=== PATIENT | female | born 1990 ===

== ENCOUNTER → 2021-01-29 11:00 | Outpatient (BNVA) | payer MEDICAID, SELFPAY | PROVIDERS: PCP Internal Medicine; Referring Provider Internal Medicine; Visit Provider Surgery | DX: L05.91 Pilonidal cyst without abscess (principal) | CPT/HCPCS: 99202 ==

== ENCOUNTER 2021-01-31 05:25 | Outpatient (REF) | payer MEDICAID, SELFPAY ==
--- NOTE | ~2021-01-31 | XR_ITS ---
EXAMINATION: XR SHOULDER, LEFT CLINICAL INFORMATION: Left shoulder pain. COMPARISON: None TECHNIQUE: Three views of the left shoulder. FINDINGS: There is no evidence of acute fracture or dislocation of the left shoulder. No destructive bony lesion identified. There is a 1.0 x 0.5 cm circumscribed bony density adjacent to the medial humeral neck which may be posttraumatic in nature. This could also represent calcification within an axillary pouch or possible calcification involving the insertion of teres minor or latissimus dorsi. Glenohumeral joint appears unremarkable. No significant abnormality of the acromioclavicular joint is seen. No calcification at site of insertion of the supraspinatus tendon is identified. No definite evidence of subcoracoid or subacromial calcific bursitis. XR/XR shoulder LT min 2V IMPRESSION: No evidence of acute fracture or dislocation of the left shoulder. Circumscribed bony density about the medial aspect of the humeral neck which may represent sequela of previous injury.
== END 2021-01-31 05:26 | disposition home or self-care (01) ==
LOC: HO.HOSX 05:25
PROVIDERS: Visit Provider Physician Assistant
DX: M25.512 Pain in left shoulder (principal); S13.4XXA Sprain of ligaments of cervical spine, initial encounter
CPT/HCPCS: 73030; 99202

== ENCOUNTER 2021-02-08 13:02 | Outpatient (REF) | payer OTHER, SELFPAY ==
--- NOTE | ~2021-02-08 | CT_ITS ---
EXAMINATION: CT HEAD WITHOUT CONTRAST CLINICAL INFORMATION: Neck pain COMPARISON: None TECHNIQUE: Contiguous axial imaging was performed from the skull base to vertex without intravenous administration of contrast. This CT examination was performed using dose optimization techniques as appropriate, variously including the following: *Automated exposure control *Adjustment of mA and/or kV according to patient size (this includes techniques or standardized protocols for targeted exams where dose is matched to indication/reason for exam; i.e. extremities or head) *Use of iterative reconstruction technique DLP: 720 mGy-cm FINDINGS: There is no evidence of acute intracranial hemorrhage or territorial infarction. No abnormal mass effect or midline shift is seen. Tenorio to white matter differentiation is well preserved. No extra-axial fluid collections are identified. The ventricles are normal in size. There is no abnormal attenuation within the brain parenchyma. The osseous structures and soft tissues are normal. The mastoid air cells and visualized portions of the paranasal sinuses are well aerated. CT/CT head/brain wo con IMPRESSION: No acute intracranial process seen
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
== END 2021-02-08 13:03 | disposition home or self-care (01) ==
LOC: HO.CT 13:02
PROVIDERS: PCP Internal Medicine; Visit Provider Internal Medicine
DX: G44.329 Chronic post-traumatic headache, not intractable (principal); M54.2 Cervicalgia
CPT/HCPCS: 70450; 72141

== ENCOUNTER → 2021-04-17 12:51 | Outpatient (BNVA) | payer OTHER, MEDICAID, SELFPAY | PROVIDERS: PCP Internal Medicine; Visit Provider Physician Assistant ==

== ENCOUNTER 2021-05-21 19:33 | Outpatient (REF) | payer OTHER, MEDICAID, SELFPAY ==
--- NOTE | ~2021-05-21 | MR_ITS ---
EXAMINATION: MR SHOULDER WITHOUT CONTRAST, LEFT CLINICAL INFORMATION: Unspecified injuries of the muscle and tendons. Shoulder pain. COMPARISON: 01/31/2021 TECHNIQUE: MR images of the shoulder were obtained on a 1.5 Angélica high-field strength scanner without intravenous contrast material. FINDINGS: ROTATOR CUFF: Intact. No muscle atrophy or fatty infiltration. BICEPS: Normal. CORACOACROMIAL ARCH: The undersurface of the acromion is flat with no subacromial spur. Minimal acromioclavicular osteoarthritis. LABRUM/CAPSULE: There is an ill-defined tear of the anteroinferior glenoid labrum propagating from the anterior 3 o'clock position through the anteroinferior 5 o'clock position, giving rise to a 3.3 x 0.9 x 2 cm paralabral cyst. This cyst propagates medially along the anterior cortex of the glenoid. The joint capsule is intact. GLENOHUMERAL JOINT/MARROW: Within the axillary pouch, there is a 0.8 x 0.7 x 0.2 cm low signal intensity loose body. The origin of this is uncertain, possibly from a small chondral defect at the humeral head anterosuperiorly. No appreciable glenoid chondral defects are identified. Glenohumeral joint is relatively well preserved. No effusion. MR/MR shoulder LT wo con IMPRESSION: 1. Ill-defined, nondisplaced tear of the anteroinferior glenoid labrum giving rise to a 3.3 cm paralabral cyst. 2. A 0.8 cm loose body in the axillary pouch. The donor site is uncertain, possibly from a subtle chondral defect at the humeral head anterosuperiorly. The glenohumeral joint is otherwise well preserved. 3. Minimal acromioclavicular osteoarthritis.
== END 2021-05-21 19:34 | disposition home or self-care (01) ==
LOC: HO.MRI 19:33
PROVIDERS: Visit Provider Physician Assistant
DX: S46.002A Unspecified injury of muscle(s) and tendon(s) of the rotator cuff of left shoulder, initial encounter (principal)
CPT/HCPCS: 73221

== ENCOUNTER → 2021-06-17 14:24 | Outpatient (BNVA) | payer OTHER, MEDICAID, SELFPAY | PROVIDERS: PCP Internal Medicine; Visit Provider Physician Assistant | DX: M77.8 Other enthesopathies, not elsewhere classified (principal) | CPT/HCPCS: 99212 ==

== ENCOUNTER → 2021-08-16 09:35 | Outpatient (BNVA) | payer OTHER, MEDICAID, SELFPAY | PROVIDERS: PCP Internal Medicine; Visit Provider Physician Assistant ==

== ENCOUNTER → 2021-09-27 11:31 | Outpatient (BNVA) | payer OTHER, MEDICAID, SELFPAY | PROVIDERS: PCP Internal Medicine; Visit Provider Physician Assistant | DX: Z01.818 Encounter for other preprocedural examination (principal); S43.432A Superior glenoid labrum lesion of left shoulder, initial encounter; X58.XXXA Exposure to other specified factors, initial encounter; Y93.9 Activity, unspecified; Y92.9 Unspecified place or not applicable; Y99.9 Unspecified external cause status | CPT/HCPCS: 99212 ==

== ENCOUNTER 2021-10-02 05:59 | Day surgery (SDC) | payer OTHER, MEDICAID, SELFPAY ==
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
[2021-10-02] VITALS (11 sets, daily range): BP systolic 137–158; BP diastolic 85–96; PULSE 67–98; RESP 14–18; TEMP 36.3–36.9; O2SAT 98–100
[2021-10-02 06:37] LABS: UPreg QC Valid YES; Urine Pregnancy NEGATIVE (NEGATIVE)
[2021-10-02] MEDS: Lactated Ringers 1,000 ML 100 ML IVCONT (06:43)
--- NOTE | 2021-10-02 07:29 | MHC.SHP ---
Pre-Procedural Eval Section A Date of Service: 10/02/21 The patient is an INPATIENT: No Changes since office visit: Yes Patient answered all questions; No Cold of Flu in the past 2 weeks, No New Medical Problems and No Changes in Medication The History & Physical has been completed within 30 days and I have reviewed it.: Yes Section B Chief Complaint: enthesopathies Allergies: Allergies Allergy/AdvReac Type Severity Reaction Status Date / Time No Known Allergies Allergy Verified 09/27/21 11:39 Plan I have reviewed the history and physical and performed a pertinent physical examination on my patient. No changes have occurred unless specified.
--- NOTE | 2021-10-02 09:38 | P.BOP_ITS ---
Brief Operative Note Date of Service: 10/02/21 Pre-op diagnosis: left shoulder instability Post-op diagnosis: other (Soft tissue bankhardt and intra-articular loose body) Procedure: labral repair with inferior capsular plication and removal of loose body left shoulder Implants: Mercado and Nephew micro-raptor x 2 Surgeon: Abdi Goodwin MD Anesthesia: GETA and regional Was an Conservation Engineer used for this Procedure?: Yes Conservation Engineer: Karis Lozoya Estimated blood loss (mL): 10 IV fluids (mL): 1,000 Pathology: none sent Condition: stable Disposition: PACU
[2021-10-02] MEDS: fentaNYL citrate/PF 100 MCG/2 ML VIAL 25 MCG IVPUSH ×2 (09:57→10:10)
[2021-10-02] MEDS: oxyCODONE HCl Immed Release 5 MG TABLET PO (10:10)
--- NOTE | 2021-10-04 12:38 | P.OP_ITS ---
Operative Note Operative Note Date of Service: 10/04/21 Narrative: Pre-op diagnosis: left shoulder instability Post-op diagnosis: other (Soft tissue bankhardt and intra-articular loose body) Procedure: labral repair with inferior capsular plication and removal of loose body left shoulder Implants: [employer] Nephew micro-raptor x 2 Surgeon: Abdi Goodwin MD Anesthesia: GETA and regional Was an Senior Applications Developer used for this Procedure?: Yes Senior Applications Developer: Karis Lozoya Estimated blood loss (mL): 10 IV fluids (mL): 1,000 Pathology: none sent Condition: stable Disposition: PACU Procedure in detail: Patient was brought to the operating room and placed the the beach chair position. All bony prominences were well padded and the limb was prepped and draped in standard sterile fashion. A time out was called to identify proper site, proper procedure and proper surgeon. IV antibiotics per weight were administered. I began by making a posterolateral stab incision with a 15 blade. A blunt trochar was placed into the glenohumeral joint and I insufflated the joint with saline and a 30 degree arthroscope was placed. I established an outside- in anterior portal just distal to the biceps tendon. I then began my inspection of the glenohumeral joint. The superior and posterior labrum were in tact. The cartilage surfaces were clean except for the anterior inferior aspect of the glenoid where there was a Bankart lesion. There was a loose body in the gutter that was likely from the Bankart lesion. There was a positive drive- through side. There was no undersurface rotator cuff tear and the glenohumeral joint was otherwise intact. I then debrided the soft tissue/small bony Bankart and a rasp was used to clear out the anterior labral debris and tissue at approximately 07:00 o'clock position. I then passed a 2 sutures underneath the torn labrum and capturing some of the inferior capsule as well. I then reapproximated the labral bumper each of these to the anterior glenoid rim using a a knotless micro-raptor suture. I was very satisfied with the repair and there was a reapproximation of the anterior labrum with tightening of the inferior capsule. I then removed the trochar and entered the subacromial space. A direct lateral portal was then established and I performed a bursectomy. The cuff was then examined. There was no rotator cuff and the subacromial space was otherwise normal. Final images were captured and I removed all instrumentation. Portals were closed with nylon. Patient was placed in an abduction sling, extubated and brought to the recovery room in stable condition. There were no known complications.
== END 2021-10-02 11:41 | disposition home or self-care (01) ==
PROVIDERS: Nurse Practitioner; PCP Internal Medicine; Visit Provider Orthopaedic Surgery
PROC: (CPT 29805; principal; 2021-10-02 07:30)
DX: S43.432A Superior glenoid labrum lesion of left shoulder, initial encounter (principal); M25.312 Other instability, left shoulder; M24.012 Loose body in left shoulder; M25.512 Pain in left shoulder; X58.XXXA Exposure to other specified factors, initial encounter; Y93.9 Activity, unspecified; Y92.9 Unspecified place or not applicable; Y99.8 Other external cause status; K21.9 Gastro-esophageal reflux disease without esophagitis; J45.990 Exercise induced bronchospasm; Z79.899 Other long term (current) drug therapy; Z87.891 Personal history of nicotine dependence
CPT/HCPCS: 29806; 29826; 81025; J0171; J0690; J1100; J2250; J2405; J2550; J3010

== ENCOUNTER 2021-10-07 09:21 | Outpatient (RCR) | payer OTHER, MEDICAID, SELFPAY | END 2021-12-13 10:45 | disposition home or self-care (01) | LOC: HO.PT 09:21 | PROVIDERS: PCP Internal Medicine; Visit Provider Physician Assistant | DX: S43.432D Superior glenoid labrum lesion of left shoulder, subsequent encounter (principal) ==

== ENCOUNTER → 2021-10-07 11:29 | Outpatient (BNVA) | payer OTHER, MEDICAID, SELFPAY | PROVIDERS: PCP Internal Medicine; Visit Provider Physician Assistant | DX: S43.432D Superior glenoid labrum lesion of left shoulder, subsequent encounter (principal); Z79.899 Other long term (current) drug therapy; X58.XXXD Exposure to other specified factors, subsequent encounter | CPT/HCPCS: 99212 ==

== ENCOUNTER → 2021-11-04 11:30 | Outpatient (BNVA) | payer OTHER, MEDICAID, SELFPAY | PROVIDERS: PCP Internal Medicine; Visit Provider Physician Assistant | DX: Z13.89 Encounter for screening for other disorder (principal) ==

== ENCOUNTER → 2022-06-06 13:30 | Outpatient (BNVA) | payer MEDICAID, SELFPAY | PROVIDERS: PCP Internal Medicine; Visit Provider Physician Assistant | DX: Z47.89 Encounter for other orthopedic aftercare (principal); S43.432D Superior glenoid labrum lesion of left shoulder, subsequent encounter | CPT/HCPCS: 99212 ==

== ENCOUNTER → 2022-07-28 14:13 | Outpatient (BNVA) | payer MEDICAID, SELFPAY | PROVIDERS: PCP Internal Medicine; Visit Provider Anesthesiology | DX: M47.812 Spondylosis without myelopathy or radiculopathy, cervical region (principal); M54.81 Occipital neuralgia; M50.30 Other cervical disc degeneration, unspecified cervical region | CPT/HCPCS: 99202 ==

== ENCOUNTER → 2022-09-30 09:11 | Outpatient (BNVA) | payer MEDICAID, SELFPAY | PROVIDERS: PCP Internal Medicine; Visit Provider Physician Assistant | DX: S43.439A Superior glenoid labrum lesion of unspecified shoulder, initial encounter (principal) | CPT/HCPCS: 99212 ==

== ENCOUNTER 2023-08-25 09:23 | Outpatient (REF) | payer MEDICAID, SELFPAY | END 2023-08-25 09:24 | disposition home or self-care (01) | LOC: HO.HOSX 09:23 | PROVIDERS: Visit Provider Physician Assistant | DX: Z13.89 Encounter for screening for other disorder (principal) ==

== ENCOUNTER 2023-09-22 14:30 | Outpatient (AMB) | payer MEDICAID, SELFPAY ==
--- NOTE | 2023-09-22 15:05 | A.OFFVIS_ITS ---
Intake Intake Visit Reasons: Newprob-Right shoulder pain Intake Note: Cynthia is a 33 year old left hand dominant female presents today for a evaluation of her right shoulder pain. Patient reports ongoing pain for a month and she feels that it is getting worse. She states that her ROM is limited with movement. Pain is more focused on the shoulder and it radiates up to her clavicle. She states using heat on the area gives her relief and resting also gives her relief. Allergies No Known Allergies Allergy (Verified 09/30/22 09:35) HPI Newprob-Right shoulder pain HPI Details 33-year-old left hand dominant female [place] presents in the office today for an evaluation of right shoulder pain. Patient reports ongoing pain for a month and she feel this is getting worse. She reports her ROM is limited with movements. She states the pain is focused in the shoulder that radiates up to the clavicle. She confirms the use of heat on the area and rest which gives her relief. She feels she has been over working the right shoulder. Patient denies a medical history of diabetes mellitus. Patient reports a left shoulder labral repair with inferior capsular plication and removal of loose body, which was performed on 10/04/[address] Goodwin. [facility] Medical History Asthma GERD (gastroesophageal reflux disease) Surgical History History of esophagogastroduodenoscopy (EGD) Family History Brother Sarcoma Paternal Grandmother Lung cancer Social History (Updated 09/22/23 @ 15:10 by Marimar Underwood) Are you a primary pet care associate to a significant other at home: No Do you presently have visiting nurse or other home services: No Alcohol intake: current Alcohol intake frequency: holidays/special occasions only Patient Tobacco Use Status: Former Tobacco user Quit Date: age 21 Tobacco use type: Cigarette Current occupational status: employed Current occupation: [employer]/ left handed Review of Systems Const All systems reviewed & are unremarkable except as noted in HPI and below Physical Exam Const General: cooperative, healthy appearing and no acute distress Resp Effort & Inspection: normal respiratory effort and able to speak in complete sentences Cardio Rate: regular rate Peripheral pulses: Peripheral pulses 2+ throughout GI Palpation (GI): Soft to palpation Skin Lesions: no lesions Rashes: no rashes Extrem Other: Right shoulder: Normal to inspection. No ecchymosis, erythema, or edema. Full shoulder ROM in all planes. Pain with cross-body reach. 5/5 strength with empty can. Negative drop arm. NVI. Assessment & Plan Assessment & Plan (1) Painful arc syndrome of right shoulder: Code(s): M75.101 - Unspecified rotator cuff tear or rupture of right shoulder, not specified as traumatic Plan Ms. Prieto is a 33-year-old left hand dominant female who presents in the office today for an evaluation of right shoulder pain. Patient reports ongoing pain for a month and she feel this is getting worse. She reports her ROM is limited with movements. She states the pain is focused in the shoulder that radiates up to the clavicle. She confirms the use of heat on the area and rest which gives her relief. She feels she has been over working the right shoulder. Patient denies a medical history of diabetes mellitus. Patient reports a left shoulder labral repair with inferior capsular plication and removal of loose body, which was performed on 10/04/[address] Goodwin. We discussed the role of cortisone injections, but she is not interested at this time. A referral for physical therapy was made and a copy was supplied to the patient while in the office today. She will call the office in 6 weeks to discuss her status. Should she not have relief we will move forward with an MRI to further evaluate the integrity of the right shoulder. Follow up will be in 6 weeks via telehealth, or sooner if needed. X-rays of the right shoulder which were obtained while in the office today and were reviewed by me, Karis Lozoya PA-C, revealed no acute fracture or dislocation. Orders: Orders PT Evaluation and Treatment Today M75.101 - Unspecified rotator cuff tear or rupture of right shoulder, not specified as traumatic XR shoulder RT min 2V Today M25.519 - Pain in unspecified shoulder Patient Instructions: Scribed by Chey Sarabia medical office professional instructor, for Karis Lozoya PA-C on 09/22/2023 at 2:36 pm, EST. Coding Level of Care Code Est Pt Level 3 (86292) Diagnoses Painful arc syndrome of right shoulder M75.101
== END 2023-09-22 15:37 | disposition home or self-care (01) ==
PROVIDERS: PCP Internal Medicine; Visit Provider Physician Assistant
DX: M75.101 Unspecified rotator cuff tear or rupture of right shoulder, not specified as traumatic (principal)
CPT/HCPCS: 99213

== ENCOUNTER 2023-09-22 15:08 | Outpatient (REF) | payer OTHER, SELFPAY ==
--- NOTE | ~2023-09-22 | XR_ITS ---
EXAMINATION: XR SHOULDER, RIGHT CLINICAL INFORMATION: Pain in unspecified shoulder. COMPARISON: None available. TECHNIQUE: Three views of the right shoulder. FINDINGS: Mild degenerative changes in the acromioclavicular joint with joint space narrowing and hypertrophic change. Glenohumeral alignment is preserved. XR/XR shoulder RT min 2V IMPRESSION: Mild degenerative changes in the acromioclavicular joint.
== END 2023-09-22 15:09 | disposition home or self-care (01) ==
LOC: HO.HOSX 15:08
PROVIDERS: Visit Provider Physician Assistant
DX: M75.101 Unspecified rotator cuff tear or rupture of right shoulder, not specified as traumatic (principal)
CPT/HCPCS: 73030; 99212

== ENCOUNTER 2023-12-17 09:12 | Outpatient (REF) | payer OTHER, SELFPAY | END 2023-12-17 09:13 | disposition home or self-care (01) | LOC: HO.HOSX 09:12 | PROVIDERS: Visit Provider Physician Assistant | DX: M75.102 Unspecified rotator cuff tear or rupture of left shoulder, not specified as traumatic (principal) | CPT/HCPCS: 99212 ==

== ENCOUNTER 2023-12-17 15:00 | Outpatient (AMB) | payer MEDICAID, SELFPAY ==
--- NOTE | 2023-12-17 15:06 | A.OFFVIS_ITS ---
Intake Visit Reasons: OV - left shoulder pain Intake Note: Cynthia is a 33 year old left hand dominant female presents today for a evaluation of her left shoulder pain. Allergies No Known Allergies Allergy (Verified 09/30/22 09:35) HPI HPI OV - left shoulder pain: Details: 33-year-old left hand dominant female who presents in the office today for a follow-up of left shoulder pain. I last saw the patient in the office on 09/30/2022 for the patient?s final postoperative appointment before being released to activities as tolerated. While in the office today the patient reports having left shoulder pain. She denies any injury or trauma to the left shoulder. However, her job does require a lot of repetitive motion. Due to the pain in the right shoulder, she feels she has been overcompensating with the left upper extremity causing the increase in pain. Patient has a surgical history of a left shoulder labral repair with inferior capsular plication and removal of loose body, which was performed on 10/02/[address] Goodwin. [facility] Medical History Asthma GERD (gastroesophageal reflux disease) Surgical History History of esophagogastroduodenoscopy (EGD) Family History Brother Sarcoma Paternal Grandmother Lung cancer Social History (Updated 09/22/23 @ 15:10 by Marimar Underwood) Are you a primary transition of care specialist to a significant other at home: No Do you presently have visiting nurse or other home services: No Alcohol intake: current Alcohol intake frequency: holidays/special occasions only Patient Tobacco Use Status: Former Tobacco user Tobacco use type: Cigarette Current occupational status: employed Current occupation: [employer]/ left handed Review of Systems Const All systems reviewed & are unremarkable except as noted in HPI and below Physical Exam Const General: cooperative, healthy appearing and no acute distress Resp Effort & Inspection: normal respiratory effort and able to speak in complete sentences Cardio Rate: regular rate Peripheral pulses: Peripheral pulses 2+ throughout GI Palpation (GI): Soft to palpation Skin Lesions: no lesions Rashes: no rashes Extrem Other: Left shoulder: Normal to inspection. No ecchymosis, erythema, or edema. Pain at the bicep tendon insertion. Full shoulder ROM in all planes. Negative cross-body reach. Negative empty can. Negative drop arm. NVI. Assessment & Plan Assessment & Plan (1) Painful arc syndrome of left shoulder: Code(s): M75.102 - Unspecified rotator cuff tear or rupture of left shoulder, not specified as traumatic Category: Medical Plan Ms. Prieto is a 33-year-old left hand dominant female who presents in the office today for a follow-up of left shoulder pain. I last saw the patient in the office on 09/30/2022 for the patient?s final postoperative appointment before being released to activities as tolerated. While in the office today the patient reports having left shoulder pain. She denies any injury or trauma to the left shoulder. However, her job does require a lot of repetitive motion. Due to the pain in the right shoulder, she feels she has been overcompensating with the left upper extremity causing the increase in pain. Patient has a surgical history of a left shoulder labral repair with inferior capsular plication and removal of loose body, which was performed on 10/02/[address] Goodwin. The patient will be referred for formal physical therapy. She would like to attend an outside facility; therefore, a paper copy was supplied today. I sent a prescription for diclofenac 75 mg PO BID to the pharmacy. The patient was also given a new work note extending her current restrictions of no pushing, pulling, or heavy lifting. Follow-up will be in 4 weeks, or sooner if needed. Orders: Orders XR shoulder LT min 2V Today M25.519 - Pain in unspecified shoulder PT Evaluation and Treatment Today M75.102 - Unspecified rotator cuff tear or rupture of left shoulder, not specified as traumatic Medications: New diclofenac sodium 75 mg PO BID PRN 60 tabs 0RF pain 30 days Patient Instructions: Scribed by Chey Sarabia spanish medical interpreter, for Karis Lozoya PA-C on 12/17/2023 at 3:01 pm, EST. Coding Level of Care Code Est Pt Level 3 (61167) Diagnoses Painful arc syndrome of left shoulder M75.102
== END 2023-12-17 15:25 | disposition home or self-care (01) ==
PROVIDERS: PCP Internal Medicine; Visit Provider Physician Assistant
DX: M75.102 Unspecified rotator cuff tear or rupture of left shoulder, not specified as traumatic (principal)
CPT/HCPCS: 99214

== ENCOUNTER 2024-01-15 07:54 | Outpatient (REF) | payer OTHER, SELFPAY ==
--- NOTE | ~2024-01-15 | XR_ITS ---
EXAMINATION: XR SHOULDER, LEFT CLINICAL INFORMATION: Pain in unspecified shoulder. COMPARISON: MR left shoulder 05/21/2021. TECHNIQUE: Three views of the left shoulder. FINDINGS: Mild degenerative changes with joint space narrowing and hypertrophic change in the acromioclavicular joint. Glenohumeral alignment is preserved. No abnormal soft tissue calcifications appreciated adjacent to the humeral head. Linear radiodensity/foreign body identified on the axial view, medial to the humeral head, and correlation with clinical exam recommended to determine etiology. XR/XR shoulder LT min 2V IMPRESSION: 1. Mild degenerative changes in the acromioclavicular joint. 2. Linear radiodensity/foreign body identified on the axial view, medial to the humeral head, and correlation with clinical exam recommended to determine etiology.
== END 2024-01-15 07:55 | disposition home or self-care (01) ==
LOC: HO.HOSX 07:54
PROVIDERS: Visit Provider Physician Assistant
DX: M75.102 Unspecified rotator cuff tear or rupture of left shoulder, not specified as traumatic (principal); M75.101 Unspecified rotator cuff tear or rupture of right shoulder, not specified as traumatic
CPT/HCPCS: 73030; 99212

== ENCOUNTER 2024-01-15 14:03 | Outpatient (AMB) | payer OTHER, SELFPAY ==
--- NOTE | 2024-01-15 14:12 | A.OFFVIS_ITS ---
Vital Signs 01/15/24 14:19 Height 5 ft 4 in Weight 210 lb BMI 36.0 Handedness Left Intake Visit Reasons: OV-left shoulder pain-follow up Intake Note: Cynthia is a 33 year old left hand dominant female presents today for a evaluation of her left shoulder pain. She states she is still having some soreness. She states that [facility] in [place] is going okay she has been in physical therapy for 6 visits now. Patient expresses that she hasn't noticed any drastic changes yet. Allergies No Known Allergies Allergy (Verified 01/15/24 14:19) HPI HPI OV-left shoulder pain-follow up: Details: 33-year-old left hand dominant female who presents in the office today?for a follow-up of left shoulder pain.?I last saw the patient in the office on 12/17/2023 when she was referred to physical therapy. She was prescribed diclofenac 75 mg PO BID and given a work note extending her restrictions. ? ? While in the office today, the patient reports she is still having mild soreness in the left shoulder. She confirms participating in physical therapy at [facility] in [place] and states it is going okay. She confirms attending 6 sessions, however, states she has not noticed any ?drastic? changes. ? PFS Medical History Asthma GERD (gastroesophageal reflux disease) Surgical History History of esophagogastroduodenoscopy (EGD) Family History Brother Sarcoma Paternal Grandmother Lung cancer Social History Are you a primary primary care sales representative to a significant other at home: No Do you presently have visiting nurse or other home services: No Alcohol intake: current Alcohol intake frequency: holidays/special occasions only Patient Tobacco Use Status: Former Tobacco user Tobacco use type: Cigarette Current occupational status: employed Current occupation: [employer]/ left handed Review of Systems Const All systems reviewed & are unremarkable except as noted in HPI and below Physical Exam Vital Signs: BMI result Body Mass Index 36.0 Const General: cooperative, healthy appearing and no acute distress Resp Effort & Inspection: normal respiratory effort and able to speak in complete sentences Cardio Rate: regular rate Peripheral pulses: Peripheral pulses 2+ throughout GI Palpation (GI): Soft to palpation Skin Lesions: no lesions Rashes: no rashes Extrem Other: Left shoulder: Normal to inspection. No ecchymosis, erythema, or edema. Pain at the bicep tendon insertion. Full shoulder ROM in all planes. Negative cross-body reach. Negative empty can. Negative drop arm. NVI. ? ? Right shoulder: Normal to inspection. No ecchymosis, erythema, or edema. Full shoulder ROM in all planes. Pain with cross-body reach. 5/5 strength with empty can. Negative drop arm. NVI.? Assessment & Plan Assessment & Plan (1) Painful arc syndrome of left shoulder: Code(s): M75.102 - Unspecified rotator cuff tear or rupture of left shoulder, not specified as traumatic Category: Medical (2) Painful arc syndrome of right shoulder: Code(s): M75.101 - Unspecified rotator cuff tear or rupture of right shoulder, not specified as traumatic Category: Medical Plan Ms. Prieto is a 33-year-old left hand dominant female who presents in the office today?for a follow-up of left shoulder pain.?I last saw the patient in the office on 12/17/2023 when she was referred to physical therapy. She was prescribed diclofenac 75 mg PO BID and given a work note extending her restrictions. ? ? While in the office today, the patient reports she is still having mild soreness in the left shoulder. She confirms participating in physical therapy at [facility] in [place] and states it is going okay. She confirms attending 6 sessions, however, states she has not noticed any ?drastic? changes.? ? An order for MRIs of the bilateral shoulders was placed while in the office today. The patient will continue to work with physical therapy. She will contact the office once the MRIs are obtained. Follow-up will after the MRI is obtained, or sooner if needed. ? ? X-rays of the right shoulder which were obtained while in the office today and were reviewed by me, Karis Lozoya PA-C, revealed no acute fracture or dislocation. ? Orders: Orders XR shoulder LT min 2V Today M25.519 - Pain in unspecified shoulder MR shoulder RT wo con Today M75.101 - Unspecified rotator cuff tear or rupture of right shoulder, not specified as traumatic, M75.102 - Unspecified rotator cuff tear or rupture of left shoulder, not specified as traumatic MR shoulder LT wo con Today M75.101 - Unspecified rotator cuff tear or rupture of right shoulder, not specified as traumatic, M75.102 - Unspecified rotator cuff tear or rupture of left shoulder, not specified as traumatic Patient Instructions: Scribed by Chey Sarabia medical accountant, for Karis Lozoya PA-C on 01/15/2024 at 2:37 pm, EST.? Coding Level of Care Code Est Pt Level 4 (45838) Diagnoses Painful arc syndrome of left shoulder M75.102 Painful arc syndrome of right shoulder M75.101
[2024-01-15 14:19] VITALS: BMI 36.0
== END 2024-01-15 14:39 | disposition home or self-care (01) ==
PROVIDERS: PCP Internal Medicine; Visit Provider Physician Assistant
DX: M75.102 Unspecified rotator cuff tear or rupture of left shoulder, not specified as traumatic (principal); M75.101 Unspecified rotator cuff tear or rupture of right shoulder, not specified as traumatic
CPT/HCPCS: 99213